=== PATIENT | male | born 1950 | race Caucasian/White ===

== ENCOUNTER 2018-10-12 07:10 | Emergency (ER) | payer OTHER ==
[~2018-10-12] VITALS: Ht 182.9 cm; Wt 90.7 kg
[2018-10-12 07:13] VITALS: BP_SYST 198
[2018-10-12] MEDS ORDERED: NACL 0.9% 1,000 ML IV ONE (07:47)
[2018-10-12 07:58] LABS: BASOPHILS % (AUTO) 0.1 % (0.0-2.0); EOSINOPHILS % (AUTO) 0.2 % (0.0-4.0); HEMATOCRIT 44.8 % (36-54); HEMOGLOBIN 14.5 g/dL (14.0-18.0); LYMPHOCYTES # (AUTO) 2.1 K/uL (1.0-5.5); LYMPHOCYTES % (AUTO) 15.2 % (20.5-51.5); MEAN CORPUSCULAR HEMOGLOBIN 30 pg (27-31); MEAN CORPUSCULAR HGB CONC 32 % (32-36); MEAN CORPUSCULAR VOLUME 91 fL (79.0-98.0); MONOCYTES # (AUTO) 1.4 K/uL (0.0-1.0); MONOCYTES % (AUTO) 9.8 % (1.7-9.3); NEUTROPHILS # (AUTO) 10.6 K/uL (1.8-7.7); NEUTROPHILS % (AUTO) 74.7 % (40.0-70.0); PLATELET COUNT (AUTO) 239 K/uL (130-430); RED CELL DISTRIBUTION WIDTH 12.6 % (9.0-15.0); WHITE BLOOD COUNT (AUTO) 14.1 K/uL (4.8-10.8)
[2018-10-12] MEDS ORDERED: KETOROLAC TROMETHAMINE 30 MG VIAL IVP ONE (08:00)
[2018-10-12 08:10] LABS: BILIRUBIN,URINE NEGATIVE (NEGATIVE); BLOOD, URINE 3+ (NEGATIVE); CLARITY/URINE CLEAR (CLEAR); COLOR,URINE YELLOW (YELLOW); GLUCOSE,URINE NEGATIVE (NEGATIVE); KETONES,URINE NEGATIVE (NEGATIVE); LEUKOCYTE ESTERASE ,URINE NEGATIVE (NEGATIVE); NITRITE, URINE NEGATIVE (NEGATIVE); PROTEIN URINE NEGATIVE (NEGATIVE); UROBILINOGEN,URINE 0.2 (0.2-1.0)
[2018-10-12 08:17] LABS: CALCIUM 11.8 mg/dL (8.4-11.0); CREATININE 1.41 mg/dL (0.55-1.30)
[2018-10-12 08:22] LABS: BACTERIA,URINE FEW /HPF (None Seen); MUCUS,URINE None Seen /LPF (None Seen); RBC,URINE 0-3 /HPF (0-3); WBC,URINE 0-3 /HPF (0-3)
[2018-10-12 08:22] LABS: ALBUMIN 4.1 g/dL (3.4-4.8)
[2018-10-12 08:23] LABS: PROTHROMBIN TIME 10.1 SECS (9.5-12.5)
[2018-10-12 10:00] VITALS: BP_SYST 163
== END 2018-10-12 10:00 | disposition home or self-care (01) ==
LOC: SED 07:10 → EDBD 07:10 → SED 10:00
DX: N20.0 Calculus of kidney (principal); K40.90 Unilateral inguinal hernia, without obstruction or gangrene, not specified as recurrent; I10 Essential (primary) hypertension; Z90.89 Acquired absence of other organs
CPT/HCPCS: 36415; 74176; 80053; 81000; 85025; 85730; 85610; 96361; 96374; 99284; J1885; J7030

== ENCOUNTER 2020-11-03 12:19 | Emergency (ER) | payer OTHER ==
[~2020-11-03] VITALS: Ht 182.9 cm; Wt 77.1 kg
[2020-11-03 13:02] VITALS: BP_SYST 152
--- NOTE | 2020-11-03 13:05 | NUR ---
Patient to ER [facility] for evaluation. Side rails up.
--- NOTE | 2020-11-03 13:05 | NUR ---
Patient walked in for evaluation of a bump in his left inguinal area that he suspects is a hernia. He denies any other symptoms or pain at this time.
--- NOTE | 2020-11-03 13:10 | NUR ---
ER Dr. Lozoya in ER4 examining patient.
[2020-11-03 13:18] VITALS: BP_SYST 152
--- NOTE | 2020-11-03 13:18 | NUR ---
Patient given written and verbal discharge instructions and verbalizes understanding. ER MD discussed with patient the results and treatment provided. Patient in stable condition. ID arm band removed. Patient educated on pain management and to follow up with PMD. Pain Scale 0/10. Opportunity for questions provided and answered. Medication side effect fact sheet provided.
== END 2020-11-03 13:18 | disposition home or self-care (01) ==
LOC: SED 12:19
DX: K40.90 Unilateral inguinal hernia, without obstruction or gangrene, not specified as recurrent (principal); I10 Essential (primary) hypertension
CPT/HCPCS: 99281